=== PATIENT | male | born 1960 | race Caucasian/White ===

== ENCOUNTER → 2021-07-22 | Outpatient (CLI) | payer OTHER ==
[~2021-07-22] MED LIST: ASPIRIN EC81 MG PO; ATORVASTATIN CA20 MG PO; BRILINTA 90 MG90 MG PO; IMDUR ER TAB 3030 MG PO; LISINOPRIL10 MG PO; LOPRESSOR 25 MG25 MG PO; MELOXICAM7.5 MG PO
== END ==
LOC: KOH-I 13:25
DX: F17.210 Nicotine dependence, cigarettes, uncomplicated (principal); E04.1 Nontoxic single thyroid nodule
CPT/HCPCS: 71271

== ENCOUNTER → 2022-05-07 | Outpatient (CLI) | payer OTHER | LOC: KOH-I 14:27 | DX: E04.2 Nontoxic multinodular goiter (principal) | CPT/HCPCS: 76536 ==